=== PATIENT | male | born 1990 | race Caucasian/White ===

== ENCOUNTER 2021-07-24 16:53 | Emergency (ER) | payer OTHER ==
[~2021-07-24] VITALS: Ht 185.4 cm; Wt 157.0 kg
[2021-07-24 16:53] VITALS: BP 133/83
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
--- NOTE | 2021-07-24 17:35 | RAD ---
EXAM: Left shoulder, 3 views. HISTORY: Pain. COMPARISON: None. FINDINGS: 3 views of the left shoulder obtained. There is no fracture, dislocation or subluxation. IMPRESSION: No acute osseous finding. Electronically signed by: Felicity Hampton MD (07/24/2021 5:33 PM) [id number]
[2021-07-24] MEDS ORDERED: HYDROcodone/APAP 5/325MG 1 TAB TABLET PO ONE (18:15)
[2021-07-24] MEDS ORDERED: CEPH500T PO (18:22)
[2021-07-24] MEDS ORDERED: HYDR-2155 PO (18:22)
== END 2021-07-24 18:57 | disposition home or self-care (01) ==
LOC: ER 16:53
DX: S43.402A Unspecified sprain of left shoulder joint, initial encounter (principal); S00.91XA Abrasion of unspecified part of head, initial encounter; S50.312A Abrasion of left elbow, initial encounter; V89.2XXA Person injured in unspecified motor-vehicle accident, traffic, initial encounter; Y93.89 Activity, other specified; Y92.89 Other specified places as the place of occurrence of the external cause; Y99.8 Other external cause status
CPT/HCPCS: 73030; 99284